=== PATIENT | female | born 1955 | race African-American/Black ===

== ENCOUNTER 2018-01-05 05:22 | Day surgery (SDC) | payer MEDICARE, OTHER ==
[~2018-01-05] VITALS: Ht 172.7 cm; Wt 115.9 kg
[~2018-01-05 05:22] MED LIST: ADV250 IH; ALBU8HFA IH; FERR-82 PO; GLIP10 PO; LINA5TAB PO; LOSA50TA37 PO; MONT10TA21 PO; PANT40TA25 PO; SIMV-261 PO
[2018-01-05] MEDS ORDERED: LIDOCAINE HCL 2% 30 ML JELLY TP ONE (05:23)
[2018-01-05] MEDS ORDERED: BENZOCAINE 20% 50 MCG/SPRAY 57 GM TP ONE (05:23)
[2018-01-05] MEDS ORDERED: LIDOCAINE HCL 4% 50 ML SOLUTION TP ONE (05:23)
[2018-01-05] MEDS ORDERED: SODIUM CHLORIDE 0.9% 1,000 ML IV ONE ×2 (05:41→06:00)
[2018-01-05 06:28] LABS: GLUCOMETER DEV NAME(LOC) SDS 5; GLUCOSE,POINT OF CARE 141 MG/DL (70-110)
[2018-01-05] MEDS ORDERED: MIDAZOLAM HCL 2 MG/2 ML VIAL ONE (07:38)
[2018-01-05] MEDS ORDERED: FentaNYL CITRATE-PF 100 MCG/2 ML VIAL ONE (07:38)
[2018-01-05] MEDS ORDERED: MethylPREDNISolone SOD SUCC 125 MG/2 ML VIAL IVP ONE (08:45)
[2018-01-05] MEDS ORDERED: MethylPREDNISolone SOD SUCC 125 MG/2 ML VIAL ONE (08:45)
[2018-01-05] MEDS ORDERED: OXYGEN THERAPY IH SCH (20:00)
== END 2018-01-05 09:25 | disposition home or self-care (01) ==
LOC: SURGERY 05:22
PROVIDERS: ATTEND Internal Medicine Critical Care Medicine
DX: J38.4 Edema of larynx (principal); B37.0 Candidal stomatitis; J84.111 Idiopathic interstitial pneumonia, not otherwise specified; I10 Essential (primary) hypertension; E11.9 Type 2 diabetes mellitus without complications; E78.00 Pure hypercholesterolemia, unspecified; J45.998 Other asthma; Z79.891 Long term (current) use of opiate analgesic; Z79.84 Long term (current) use of oral hypoglycemic drugs; Z90.89 Acquired absence of other organs; Z90.710 Acquired absence of both cervix and uterus; Z90.49 Acquired absence of other specified parts of digestive tract; Z79.899 Other long term (current) drug therapy; Z98.890 Other specified postprocedural states
CPT/HCPCS: 31623; 31624; 71045; 82962; 87015; 87070; 87205; 87206; 87220; 88108; 88312; J2250; J2930; J3010; J7030